=== PATIENT | male | born 1980 | race Caucasian/White ===

== ENCOUNTER 2017-02-15 14:25 | Inpatient (IN) | payer SELFPAY ==
[~2017-02-15] VITALS: Ht 185.4 cm; Wt 113.4 kg
[2017-02-15 17:45] LABS: HEMOGLOBIN 16.1 gm/dl (14.0-17.5); RED BLOOD COUNT 5.14 M/UL (4.20-5.50); WHITE BLOOD COUNT 14.7 K/UL (4.5-11.0)
[2017-02-15 18:09] LABS: BUN/CREATININE RATIO 19 (0-10)
[2017-02-16] MEDS ORDERED: GLUCOPHAGE 500500 MG PO (00:56)
[2017-02-16] MEDS ORDERED: TENORMIN 50 MG50 MG PO (00:56)
[2017-02-16] MEDS ORDERED: HYDROCHLOROTHIA25 MG PO (00:57)
[2017-02-16] MEDS ORDERED: LISINOPRIL40 MG PO (00:57)
[2017-02-16] MEDS ORDERED: OMEPRAZOLE20 M1 PO (00:57)
[2017-02-16 06:14] LABS: WHITE BLOOD COUNT 11.5 K/UL (4.5-11.0)
[2017-02-16 06:15] LABS: RED BLOOD COUNT 4.55 M/UL (4.20-5.50)
[2017-02-16 06:16] LABS: HEMOGLOBIN 14.1 gm/dl (14.0-17.5)
[2017-02-16 06:46] LABS: BUN/CREATININE RATIO 15 (0-10)
[2017-02-17 05:55] LABS: HEMOGLOBIN 13.7 gm/dl (14.0-17.5); RED BLOOD COUNT 4.47 M/UL (4.20-5.50)
[2017-02-17 05:59] LABS: WHITE BLOOD COUNT 14.6 K/UL (4.5-11.0)
[2017-02-17 06:22] LABS: BUN/CREATININE RATIO 11 (0-10)
[2017-02-18 05:16] LABS: BUN/CREATININE RATIO 11 (0-10)
[2017-02-18 08:47] LABS: BUN/CREATININE RATIO 13 (0-10)
[2017-02-18 12:44] LABS: BUN/CREATININE RATIO 12 (0-10)
[2017-02-18 16:56] LABS: BUN/CREATININE RATIO 11 (0-10)
[2017-02-18 20:42] LABS: BUN/CREATININE RATIO 11 (0-10)
[2017-02-19 01:04] LABS: BUN/CREATININE RATIO 10 (0-10)
[2017-02-19 05:11] LABS: HEMOGLOBIN 12.5 gm/dl (14.0-17.5); RED BLOOD COUNT 4.24 M/UL (4.20-5.50); WHITE BLOOD COUNT 10.1 K/UL (4.5-11.0)
[2017-02-19 05:14] LABS: BUN/CREATININE RATIO 10 (0-10)
[2017-02-19 10:42] LABS: BUN/CREATININE RATIO 6 (0-10)
[2017-02-19 13:47] LABS: BUN/CREATININE RATIO 7 (0-10)
[2017-02-19 17:58] LABS: BUN/CREATININE RATIO 6 (0-10)
[2017-02-19 22:12] LABS: BUN/CREATININE RATIO 6 (0-10)
[2017-02-20 01:46] LABS: BUN/CREATININE RATIO 8 (0-10)
[2017-02-20 05:33] LABS: HEMOGLOBIN 12.2 gm/dl (14.0-17.5); RED BLOOD COUNT 4.12 M/UL (4.20-5.50); WHITE BLOOD COUNT 8.8 K/UL (4.5-11.0)
[2017-02-20 05:49] LABS: BUN/CREATININE RATIO 8 (0-10)
[2017-02-20 18:52] LABS: BUN/CREATININE RATIO 7 (0-10)
[2017-02-21 04:41] LABS: HEMOGLOBIN 11.8 gm/dl (14.0-17.5); RED BLOOD COUNT 4.01 M/UL (4.20-5.50); WHITE BLOOD COUNT 9.3 K/UL (4.5-11.0)
[2017-02-21 04:57] LABS: BUN/CREATININE RATIO 5 (0-10)
[2017-02-21 16:50] LABS: BUN/CREATININE RATIO 9 (0-10)
[2017-02-22 06:46] LABS: BUN/CREATININE RATIO 9 (0-10)
[2017-02-23 06:32] LABS: BUN/CREATININE RATIO 11 (0-10)
[2017-02-24 05:15] LABS: RED BLOOD COUNT 4.11 M/UL (4.20-5.50); WHITE BLOOD COUNT 6.7 K/UL (4.5-11.0)
[2017-02-24 05:35] LABS: BUN/CREATININE RATIO 11 (0-10)
[2017-02-24] MEDS ORDERED: NOVOLOG 10100 UNITS2 SQ (13:13)
[2017-02-24] MEDS ORDERED: NORVASC10 MG PO (13:14)
[2017-02-24] MEDS ORDERED: LEVEMIR100 UNIT/1 SQ (13:14)
[2017-02-24] MEDS ORDERED: LIPITOR TAB 2020 MG PO (13:15)
[2017-02-24] MEDS ORDERED: TRICOR 145 MG145 MG PO (13:16)
[2017-02-24] MEDS ORDERED: FISH OIL 1,0001 EAC3 PO (13:16)
== END 2017-02-24 18:20 | disposition home or self-care (01) | DRG 439 ==
LOC: ER1 14:25 → ZEROF 20:24 → M/S 20:24 → CCU 20:24 → M/S 02-16 00:36 → CCU 02-18 08:52 → MED SURG 4 02-21 20:45
PROVIDERS: Internal Medicine; Internal Medicine Infectious Disease; Specialist/Technologist Athletic Trainer; ADMIT Internal Medicine
DX: K85.90 Acute pancreatitis without necrosis or infection, unspecified (principal); E87.1 Hypo-osmolality and hyponatremia; E13.10 Other specified diabetes mellitus with ketoacidosis without coma; R65.10 Systemic inflammatory response syndrome (SIRS) of non-infectious origin without acute organ dysfunction; E87.2 Acidosis; E86.0 Dehydration; I10 Essential (primary) hypertension; E66.9 Obesity, unspecified; Z68.33 Body mass index [BMI] 33.0-33.9, adult; Z79.84 Long term (current) use of oral hypoglycemic drugs; Z79.899 Other long term (current) drug therapy; E78.1 Pure hyperglyceridemia; K76.0 Fatty (change of) liver, not elsewhere classified; E87.6 Hypokalemia
CPT/HCPCS: 36415; 71010; 74150; 80048; 80053; 80061; 82009; 82962; 83036; 83605; 83690; 83735; 84100; 84439; 84443; 84478; 85025; 85027; 96361; 96374; 99285; C9113; J1650; J1815; J1885; J2270; J3480; J7030; J7050; Q9962

== ENCOUNTER → 2021-01-11 | Outpatient (CLI) | payer BC, OTHER ==
[~2021-01-11] MED LIST: BUSPIRONE HCL5 MG PO; CITALOPRAM HBR20 MG PO; DECADRON IM/I4 MG/ML PO; DECADRON6 MG PO; ELIQUIS5 MG PO; FISH OIL 1,0001 EAC3 PO; GLUCOPHAGE 500500 MG PO; HUMALOG100 UNIT/1 SQ; HYDROCHLOROTHIA25 MG PO; LEVEMIR100 UNIT/1 SQ; LIPITOR TAB 2020 MG PO; LISINOPRIL40 MG PO; LOSARTAN-HCTZ1 EAC2 PO; METHOCARBAMOL500 MG PO; NORVASC10 MG PO; NOVOLOG 10100 UNITS2 SQ; OMEPRAZOLE20 M1 PO; PROTONIX40 MG PO; PROVENTIL HFA6.7 GM INH; TENORMIN 50 MG50 MG PO; TOUJEO MAX300 UNIT/1 SQ; TRICOR 145 MG145 MG PO; TRULICITY0.75 MG/0. SQ; VOLTAREN EC 7575 MG PO
== END ==
LOC: HEART 5 10:20
DX: R06.02 Shortness of breath (principal)
CPT/HCPCS: 94060; 94729

== ENCOUNTER → 2021-02-01 | Outpatient (CLI) | payer BC, OTHER | LOC: SLEEP 14:11 | DX: G47.33 Obstructive sleep apnea (adult) (pediatric) (principal); E66.01 Morbid (severe) obesity due to excess calories; R06.02 Shortness of breath; I10 Essential (primary) hypertension | CPT/HCPCS: 95811 ==